=== PATIENT | male | born 1975 | race American Indian/Alaskan Native ===

== ENCOUNTER 2016-12-04 14:43 | Inpatient (IN) | payer MEDICAID ==
[2016-12-04 14:50] VITALS: RESP 18
[2016-12-04] MEDS ORDERED: Albuterol 0.083% Inhal Sol (2.5 mg/3 mL) UD IH STA (15:25)
--- NOTE | 2016-12-04 15:39 | C.PDOC ---
History Of Present Illness 41-year-old male, PMHx includes Substance Abuse and Asthma, presents to the emergency department requesting detox. Patient states he uses about about fifty bags of Heroin everyday. Last use was at noon today, and he used about ten bags. Patient denies any chest pain, shortness of breath, nausea/vomiting, fevers, chills, or any other associated symptoms. No other complaints at this time. Time Seen by Provider: 12/04/16 15:23 Chief Complaint (Nursing): Substance Abuse History Per: Patient History/Exam Limitations: no limitations Past Medical History Reviewed: Historical Data, Nursing Documentation, Vital Signs Vital Signs: Last Vital Signs Temp 98.2 F 12/04/16 14:49 Pulse 70 12/04/16 14:49 Resp 18 12/04/16 14:49 BP 117/79 12/04/16 14:49 Pulse Ox 96 12/04/16 15:40 - Medical History PMH: Anxiety, Asthma, Bipolar Disorder, Depression - [facility] Procedures ALCOHOL DETOXIFICATION (08/23/14) COMBINED ALCOHOL AND DRUG DETOXIFICATION (01/03/15) DETOXIFICATION SERVICES FOR SUBSTANCE ABUSE TREATMENT (06/16/15) Family History: States: No Known Family Hx - Social History Hx Tobacco Use: Yes Hx Alcohol Use: No Hx Substance Use: Yes (heroin, cocaine use) - Immunization History Hx Tetanus Toxoid Vaccination: No Hx Influenza Vaccination: No Hx Pneumococcal Vaccination: No Review Of Systems Except As Marked, All Systems Reviewed And Found Negative. Constitutional: Negative for: Fever, Chills Cardiovascular: Negative for: Chest Pain, Palpitations Respiratory: Negative for: Shortness of Breath Gastrointestinal: Negative for: Vomiting Skin: Negative for: Rash Neurological: Negative for: Weakness, Numbness Physical Exam - Physical Exam Appears: Non-toxic, No Acute Distress Skin: Warm, Dry, No Rash Head: Atraumatic, Normacephalic Eye(s): bilateral: Normal Inspection Nose: Normal Oral Mucosa: Moist Lips: Normal Appearing Neck: Normal ROM Cardiovascular: Rhythm Regular, No Murmur Respiratory: No Accessory Muscle Use, Wheezing (diffuse, B/L) Extremity: Normal ROM Neurological/Psych: Oriented x3, Normal Speech ED Course And Treatment - Laboratory Results Result Diagrams: 12/04/16 16:01 12/04/16 16:01 Lab Interpretation: No Acute Changes (UDS + opiates and cocaine) O2 Sat by Pulse Oximetry: 96 Pulse Ox Interpretation: Normal Progress Note: Patient is medically cleared for detox admission. Disposition - Disposition Disposition: HOSPITALIZED Disposition Time: 17:58 Condition: STABLE - POA Present On Arrival: None - Clinical Impression Clinical Impression: Heroin use disorder, severe, dependence - Scribe Statement The provider has reviewed the documentation as recorded by the Scribe (Keeley Álvarez) All medical record entries made by the Scribe were at my direction and personally dictated by me. I have reviewed the chart and agree that the record accurately reflects my personal performance of the history, physical exam, medical decision making, and the department course for this patient. I have also personally directed, reviewed, and agree with the discharge instructions and disposition.
[2016-12-04 16:05] LABS: BASO % 0.6 % (0.0-2.0); EOS # 0.3 K/uL (0.0-0.7); EOS % 4.2 % (0.0-4.0); HEMOGLOBIN 13.7 g/dL (12.0-18.0); LYMPH # 2.6 K/uL (1.0-4.3); LYMPH % 36.3 % (20.0-40.0); MEAN CELL VOLUME 92.4 fL (80.0-94.0); MEAN CORPUSCULAR HEMOGLOBIN 30.4 pg (27.0-31.0); MEAN CORPUSCULAR HGB CONC 32.9 g/dL (33.0-37.0); MEAN PLATELET VOLUME 8.3 fL (7.2-11.7); MONO # 0.3 K/uL (0.0-0.8); MONO % 4.8 % (0.0-10.0); NEUT # 3.8 K/uL (1.8-7.0); NEUT % 54.1 % (50.0-75.0); RBC 4.5 Mil/uL (4.40-5.90); RED CELL DISTRIBUTION WIDTH 14.2 % (11.5-14.5); WHITE BLOOD COUNT 7.1 K/uL (4.8-10.8)
[2016-12-04 16:12] LABS: ALBUMIN 3.7 g/dL (3.5-5.0)
[2016-12-04] MEDS ORDERED: Albuterol 0.083% Inhal Sol (2.5 mg/3 mL) UD ONE ×2 (16:12→16:14)
[2016-12-04 16:15] LABS: GFR AFRICAN-AMERICAN > 60; GFR NON-AFRICAN AMERICAN > 60
[2016-12-04 16:16] LABS: ALB/GLOB RATIO 1.2 (1.0-2.1); ALT/SGPT 30 U/L (21-72); AST/SGOT 23 U/L (17-59); BLOOD UREA NITROGEN 14 mg/dL (9-20); CALCIUM 8.5 mg/dl (8.6-10.4)
[2016-12-04 16:52] LABS: URINE BILIRUBIN NEGATIVE (NEGATIVE); URINE BLOOD NEGATIVE (NEGATIVE); URINE CLARITY Clear (Clear); URINE COLOR Yellow (YELLOW); URINE GLUCOSE (UA) NORMAL (Normal); URINE LEUKOCYTE ESTERASE NEG Leu/uL (Negative); URINE NITRATE NEGATIVE (NEGATIVE); URINE PROTEIN NEGATIVE (NEGATIVE); URINE UROBILINOGEN NORMAL mg/dL (0.2-1.0)
[2016-12-04 17:01] LABS: BARBITURATES, UR NEGATIVE (NEGATIVE); BENZODIAZEPINES, UR NEGATIVE (NEGATIVE)
[2016-12-04 17:09] LABS: PHENCYCLIDINE, UR NEGATIVE (NEGATIVE)
[2016-12-04 17:11] LABS: OPIATES, UR POSITIVE (NEGATIVE)
--- NOTE | 2016-12-04 18:23 | PCM.BM ---
<Katt Correa - Last Filed: 12/04/16 18:22> Treatment Plan Problems - Problems identified on initial assessmt Opiate Dependence Date Initiated: 12/04/16 Time Initiated: 18:23 Assessment reference: NA Status: Active Treatment assets and liabiliti Patient Assests: ADL independent Patient Liabilities: substance abuse - Milieu Protocol Maintain good personal hygiene: daily Encourage regular showers, daily Remind patient to perform daily oral care, other Assist patient to perform ADL's Maintain personal safety: every shift Educate patient to report safety concerns to staff, every shift Monitor environment for contraband/sharps Medication safety: Monitor for expected outcome, potential side effects: every shift, Assess barriers to learning: every shift, Assess readiness for medication education: every shift <Cal Barrera - Last Filed: 12/05/16 22:31> - Diagnosis (1) Heroin use disorder, severe, dependence Status: Acute Interventions: 12/05/16 22:27 * Assess 7x/week regarding severity of withdrawal * Educate regarding risks, benefits, side effects and alternatives of medications * Use Motivational Interviewing for abstinence * Use CBT for relapse prevention * Medication management for withdrawal symptoms * Encourage medication assisted treatment * (2) Psychosis Status: Acute Interventions: 12/05/16 22:31 * Assess/adjust medications daily and /or as needed * Discuss risks, benefits, sided effects and alternatives of medications * See patient on an individual basis 7x/week to assess level of delusional thoughts/ideation *
[2016-12-04] MEDS ORDERED: Buprenorphine Hydrochloride 2 mg SL ONE (22:21)
[2016-12-05] MEDS ORDERED: Aluminum Hydroxide/Magnesium Hydroxide Susp (30 mL) PO PRN (10:15)
--- NOTE | 2016-12-05 11:36 | PCM.PSYCH ---
Initial Psychiatric Evaluation - Initial Psychiatric Evaluation Type of Admission: Voluntary Legal Status: Capacity Chief Complaint (in patient's own words): "I need to stop this" History of Present Illness and Precipitating Events: The pt is seen, chart reviewed, case discussed He is known from a previous admission. Very poor historian. He is a 41 yo AAM, single, with 2 children both young adults, he lives with his GF in , unemployed, does odd jobs He reports using heroin 10 bags/day both iv and intranasal. Started 10 years ago and he also does "some" painkillers. Pt also uses cocaine 2x/week, crack, for years. Denies alcohol and other drugs but uses cigarettes 1 ppd. Two detoxes but no rehabs or NA or MAT in the past. He has psych sxs: somewhat depressed and anxious and hears a voice on and off. He looks intense, paranoid and odd, but no delusions elicited. He also denied hearing voices since admission. However, he had been hearing very recently. Past psych hx: Pt admits to having been admitted in the past and that he was treated for psychosis Family psych hx: Unknown Medical hx: He has some eye problems that he is vague about and wears shades to protect from light. Current Medications: Active Medications Generic Name Dose Route Start Last Admin Trade Name Freq PRN Reason Stop Dose Admin Al Hydrox/Mg Hydrox/Simethicone 30 ml 12/05/16 10:15 Maalox 30 Ml PO TID PRN Indigestion / Heartburn Buprenorphine HCl 6 mg 12/05/16 10:00 Subutex SL 12/09/16 09:59 DAILY FIONA Taper Clonidine HCl 0.1 mg 12/04/16 22:18 Catapres PO Q8H PRN Opioid Withdrawal Hydroxyzine HCl 25 mg 12/04/16 22:16 Atarax PO Q6H PRN Anxiety Loperamide HCl 2 mg 12/05/16 10:15 Imodium PO Q8 PRN Diarrhea Ondansetron HCl 4 mg 12/04/16 22:20 Zofran Odt PO Q6H PRN Nausea/Vomiting Ondansetron HCl 4 mg 12/05/16 10:15 Zofran Tab PO Q8 PRN Nausea/Vomiting Quetiapine Fumarate 100 mg 12/05/16 10:30 Seroquel PO BID FIONA Quetiapine Fumarate 100 mg 12/05/16 22:00 Seroquel PO HS FIONA Trazodone HCl 50 mg 12/04/16 22:00 12/04/16 22:12 Desyrel PO 50 mg HS PRN Administration Insomnia Past Psychiatric History - Past Psychiatric History Previous Treatment History: Inpatient Pertinent Medical Hx (Current Medical&Sleep Prob, Allergies): Allergies Allergy/AdvReac Type Severity Reaction Status Date / Time No Known Allergies Allergy Verified 06/16/15 16:19 Albuterol HFA [Ventolin HFA 90 mcg/actuation (8 g)] 1 puff IH Q6 PRN 06/16/15 QUEtiapine [SEROquel] 100 mg PO BID 12/04/16 Review of Systems - Neurological Neurological: UNREMARKABLE - Psychiatric Psychiatric: Abnormal Sleep Pattern, Anxiety, Behavioral Changes, Difficulty Concentrating, Irritability. absent: Hallucinations, Homicidal Ideation, Suicidal Ideation Mental Status Examination - Personal Presentation Personal Presentation: Looks older than stated age - Affect Affect: Blunted - Motor Activity Motor Activity: Calm - Reliability in Providing Information Reliability in Providing Information: Good - Speech Speech: Organized, Other (slowed) - Mood Mood: Anxious - Formal Thought Process Formal Thought Process: No Impairment - Cognitive Functions Orientation: Person, Place, Situation, Time Sensorium: Alert Attention/Concentration: Attentive Abstract Thinking: [place] Estimate of Intelligence: Below average Judgement: Intact, as evidence by: Insight regarding need for hospitalization Memory: Recent intact, as evidence by: Ability to recall events of the day, Remote intact, as evidenced by: Abilit to recall sig. life events - Risk Risk: Withdrawal, Diminished functioning - Strength & Assets Inventory Strength & Assets Inventory: Cooperative - Limitations Limitations: Living alone DSM 5 DX - DSM 5 DSM 5 Diagnosis: Opioid withdrawal Opioid use d/o - severe Cocaine use d/o - moderate Tobacco use d/o - severe - Recommended/Plan of Treatment Treatment Recommendations and Plan of Treatment: Subutex detox Gabapentin for augmentation Seroquel for mood sxs As needed meds and vitamins Attend groups and activities SD for abstinence and CBT for relapse prevention Support and psychoeducation Consider and encourage MAT Refer to after care 33 min Projected ELOS: 5 days Prognosis: good with treatment Discharge Plan and Discharge Criteria: No wdw sxs - Smoking Cessation Smoking Cessation Initiated: Yes
[2016-12-05] MEDS: Buprenorphine Hydrochloride 2 mg SL SCH (11:40)
[2016-12-06] MEDS: Buprenorphine Hydrochloride 2 mg SL SCH (09:41)
[2016-12-06] MEDS ORDERED: Buprenorphine Hydrochloride 2 mg SL ONE (10:57)
--- NOTE | 2016-12-06 12:25 | PCM.PYCHPN ---
Psychiatric Progress Note - Psychiatric Progress Note Patient seen today, length of contact: 16 min Patient Chief Complaint: "I am still withdrawing" Problems Identified/Issues Discussed: The pt is seen, chart reviewed, case discussed with staff. Support given, CBT and CA used briefly No new symptoms reported, improving slowly and needs more time He had to take an extra dose today bc of wdw sx No SEs from medications, risks discussed. After care discussed - not interested Medication Change: Yes (detox changes daily) Medical Record Reviewed: Yes Mental Status Examination - Cognitive Function Orientation: Person, Place, Situation, Time Memory: Impaired Attention: Poor Concentration: Poor Association: WNL Fund of Knowledge: Poor - Mood Mood: Anxious - Affect Affect: Constricted - Speech Speech: Appropriate - Formal Thought Process Formal Thought Process: No Impairment - Suicidal Ideation Suicidal Ideation: No - Homicidal Ideation Homicidal Ideation: No Goal/Treatment Plan - Goal/Treatment Plan Need for Continued Stay: Discharge may exacerbated symptoms, Severe functional impairment Progress Toward Problem(s) and Goals/Treatment Plan: Subutex detox Gabapentin for augmentation Seroquel for mood sxs As needed meds and vitamins Attend groups and activities CA for abstinence and CBT for relapse prevention Support and psychoeducation Consider and encourage MAT Refer to after care Estimated Date of D/C: 12/08/16
[2016-12-06] MEDS ORDERED: Magnesium Hydroxide Susp 30 ml UD PO ONE (14:25)
[2016-12-07] MEDS: Buprenorphine Hydrochloride 2 mg SL SCH (09:26)
[2016-12-07] MEDS ORDERED: Buprenorphine Hydrochloride 2 mg SL ONE (10:00)
--- NOTE | 2016-12-07 15:11 | PCM.PYCHPN ---
Psychiatric Progress Note - Psychiatric Progress Note Patient seen today, length of contact: 15 minutes Patient Chief Complaint: I still have some withdrawal symptoms. Problems Identified/Issues Discussed: Patient seen. Chart reviewed. Case discussed with the staff. Issues related to illness and treatment were discussed with the patient. Reported compliant with treatment with no adverse affects. Tolerating treatment very well. Patient reported still having some withdrawal symptoms including body aches, nausea, abdominal cramps and for like symptoms. Requesting to have one extra dose of Subutex. Patient got and etc. dose of Subutex yesterday because of his withdrawal symptoms. We will provide and etc. dose today again. At the time of evaluation, patient was awake alert oriented 3, had no delusions, no auditory or visual hallucinations, no suicidal ideations or homicidal ideations. Medical Problems: None reported Diagnostic Results: Reviewed Medication Change: No Medical Record Reviewed: Yes Mental Status Examination - Cognitive Function Orientation: Person, Place, Situation, Time Memory: Intact Attention: WNL Concentration: WNL Association: [facility] Fund of Knowledge: [facility] Decription of patient's judgement and insights: Fair - Mood Mood: Anxious - Affect Affect: Other (Appropriate) - Speech Speech: Appropriate - Formal Thought Process Formal Thought Process: No Impairment Psychotic Thoughts and Behaviors: None - Suicidal Ideation Suicidal Ideation: No - Homicidal Ideation Homicidal Ideation: No Goal/Treatment Plan - Goal/Treatment Plan Need for Continued Stay: Remain at risks for inpatient hospitalization, Discharge may exacerbated symptoms, Severe functional impairment Progress Toward Problem(s) and Goals/Treatment Plan: Improving Patient education Continue treatment as before Supportive therapy Wants to go to [facility] methadone maintenance program after discharge from the hospital for follow-up care Estimated Date of D/C: 12/09/16 - Smoking Cessation Smoking Cessation Initiated: No
[2016-12-08 06:19] VITALS: BP 99/71; PULSE 60; TEMP 97.3; O2SAT 97
--- NOTE | 2016-12-08 09:15 | PCM.PYCHDC ---
Mental Status Examination - Mental Status Examination Orientation: Person Discharge Summary - Discharge Note Consultations:: List each consultation separately and include: 1. Reason for request. 2. Findings. 3. Follow-up Summary of Hospital Course include:: 1. Description of specific treatment plan utilized for patients during their course of treatmen. 2. Summarize the time- course for resolution of acute symptoms and/or regressed behaviors. 3. Describe issues identified and worked on during hospitalization. 4. Describe medication utilized. 5. Describe medical problems identified and treated. 6. Reassessment of suicide risk Summary of Hospital Course: The pt is seen, chart reviewed, case discussed He is known from a previous admission. Very poor historian. He is a 41 yo AAM, single, with 2 children both young adults, he lives with his GF in , unemployed, does odd jobs He reports using heroin 10 bags/day both iv and intranasal. Started 10 years ago and he also does "some" painkillers. Pt also uses cocaine 2x/week, crack, for years. Denies alcohol and other drugs but uses cigarettes 1 ppd. Two detoxes but no rehabs or NA or MAT in the past. He has psych sxs: somewhat depressed and anxious and hears a voice on and off. He looks intense, paranoid and odd, but no delusions elicited. He also denied hearing voices since admission. However, he had been hearing very recently. Past psych hx: Pt admits to having been admitted in the past and that he was treated for psychosis Family psych hx: Unknown Medical hx: He has some eye problems that he is vague about and wears shades to protect from light. - Diagnosis (1) Heroin use disorder, severe, dependence Current Visit: Yes Status: Acute (2) Psychosis Current Visit: Yes Status: Acute - Final Diagnosis (DSM 5) Condition upon Discharge: STABLE Disposition: HOME/ ROUTINE Follow-up Treatment Plan: Subutex detox Gabapentin for augmentation Seroquel for mood sxs As needed meds and vitamins Attend groups and activities LA for abstinence and CBT for relapse prevention Support and psychoeducation Consider and encourage MAT Refer to after care Prescriptions/Medication Reconciliation: QUEtiapine [Seroquel] 100 mg PO HS #30 tab traZODone [Desyrel] 50 mg PO HS PRN #30 tab PRN Reason: Insomnia
[2016-12-08] MEDS: Buprenorphine Hydrochloride 2 mg SL SCH (09:21)
== END 2016-12-08 09:35 | disposition home or self-care (01) | DRG 745 ==
LOC: C.ER 14:43 → C.7D 17:58
PROC: HZ2ZZZZ Detoxification Services for Substance Abuse Treatment (ICD-10-PCS; principal; 2016-12-04)
PROC: HZ59ZZZ Individual Psychotherapy for Substance Abuse Treatment, Supportive (ICD-10-PCS; 2016-12-04)
PROC: HZ46ZZZ Group Counseling for Substance Abuse Treatment, Psychoeducation (ICD-10-PCS; 2016-12-04)
PROC: GZ3ZZZZ Medication Management (ICD-10-PCS; 2016-12-04)
DX: F11.23 Opioid dependence with withdrawal (principal); F29 Unspecified psychosis not due to a substance or known physiological condition; F14.10 Cocaine abuse, uncomplicated; F31.9 Bipolar disorder, unspecified; J45.909 Unspecified asthma, uncomplicated; H57.9 Unspecified disorder of eye and adnexa